=== PATIENT | male | born 1955 | race Caucasian/White ===

== ENCOUNTER 2022-11-16 16:47 | Emergency (ER) | payer MEDICARE, SELFPAY ==
[2022-11-16 17:11] VITALS: BP 126/78; PULSE 93; RESP 17; TEMP 36.8; O2SAT 98; BMI 25.8
--- NOTE | 2022-11-16 22:31 | ED_ITS ---
HPI - General Adult General: Chief complaint: General Medical Stated complaint: skin irritation, bugs? Time Seen by Provider: 11/16/22 17:16 Source: patient Mode of arrival: ambulatory Limitations: no limitations History of Present Illness: Patient presents to the emergency department today accompanied by family who is also here for similar symptoms of concerns for parasitic infestation. Patient reports seeing bugs crawling out of his skin for a month or so now. Family member with him reports she has been having them for several months and that they come out of her eyes, ears, skin, and in her stool. Patient states he is itchy. They have brought in examples of these bugs which are on pieces of duct tape, on paper towels and tissues wrapped up in a [employer] bag, etc. He states he puts the tape on his skin and when he pulls it off the bugs are attached. Review of Systems General: Reports: 10 or more systems reviewed and unremarkable except in HPI and below Physical Exam Const: COMMON NORMALS: no acute distress, average body habitus and patient oriented x3 HENMT: COMMON NORMALS: normocephalic, atraumatic, hearing grossly normal bilaterally, Normal external nose present and moist oral mucous membranes HEAD & SCALP: normocephalic and atraumatic NOSE: Normal external nose present Eye: COMMON NORMALS: Equal, round and reactive pupils present, EOMs intact bilaterally and conjunctivae normal CONJUNCTIVA: Yes conjunctivae normal PUPIL: Yes Equal, round and reactive pupils present Neck/C-Spine: COMMON NORMALS: no JVD Lymph: LYMPHATIC: no lymphadenopathy noted Resp: COMMON NORMALS: normal respiratory effort, No retractions and No use of accessory muscles Cardio: COMMON NORMALS: no JVD, regular rate and regular rhythm RATE: regular rate RHYTHM: regular rhythm GI: COMMON NORMALS: Normal to inspection, nondistended, normoactive bowel sounds present : COMMON NORMALS: Yes no CVA tenderness BLADDER/KIDNEY EXAM: Yes no CVA tenderness Back/Pelvis: COMMON NORMALS: no CVA tenderness and thoraco-lumbar ROM normal Extremity: COMMON NORMALS: normal to inspection, full ROM and capillary refill normal Neuro: COMMON NORMALS: patient oriented x3 Psych: COMMON NORMALS: mental status grossly normal, Normal thought process present, cooperative, normal affect and activity/motor behavior normal THOUGHT PROCESS: Normal thought process present Skin: NARRATIVE SKIN EXAM: Patient has several areas on his arms of small wounds and light erythema surrounding. There is a light yellow/green coating over these wounds. Course Vital Signs: Vital signs: Vital Signs Temperature 98.2 F 11/16/22 17:11 Pulse Rate 93 11/16/22 17:11 Respiratory Rate 17 11/16/22 17:11 Blood Pressure 126/78 11/16/22 17:11 Pulse Oximetry 98 11/16/22 17:11 Oxygen Delivery Me thod Room Air 11/16/22 17:11 MDM - General Adult Medical Decision Making Patient has no obvious signs of parasitic infestation on his exam and, items brought in with them do not appear to be parasitic in any way and appear more of pieces of skin which have been scratched off. 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 Patient will indicate he saw 1 and will try and to get out but then have missed it . He states he sees them and will point areas on his skin which show no signs of abnormality. Patient is treated with antibiotics for the open wounds and cellulitis. He was also given hydroxyzine to help with the itching. I have requested a follow-up appointment primary care to make sure the wounds are healing and to further evaluate the underlying cause of the perception of parasitosis. Differential Diagnosis DDx: Bedbugs, chiggers, scabies, delusions of parasitosis Discharge Plan Discharge Patient Disposition: Home Clinical Impression: Cellulitis Condition: Stable Prescriptions: New cephalexin 500 mg capsule 500 mg PO QID 7 Days Qty: 28 0RF hydroxyzine HCl 25 mg tablet 25 mg PO Q6H PRN (Reason: itching) 10 Days Qty: 40 0RF Discharge Orders: Discharge ED (Routine); Ordered 11/16/22 Ordered By: Holli Marley Discharge Diet: Usual diet Discharge Activity: Increase activity as tolerated Patient Instructions: Cellulitis Activity Restrictions/Additional Instructions: I am providing you medication to help with your skin symptoms and, have requested a follow-up appoint with a primary care doctor to discuss to continue monitoring success of healing of the spots on the skin. Coding Level of Care Code ED Airconditioning Plant Operator for Milli Mullen
--- NOTE | 2022-11-19 12:42 | DCPLANNER ---
application developer manager had message to speak with patient about getting established with a primary care physician. application developer manager called phone number [phone] - unable to speak with patient or leave a voicemail at this time.
== END 2022-11-16 17:53 | disposition home or self-care (01) ==
PROVIDERS: Emergency Provider Physician Assistant
DX: L03.90 Cellulitis, unspecified (principal)
CPT/HCPCS: 99283

== ENCOUNTER 2022-11-22 05:03 | Emergency (ER) | payer MEDICARE, SELFPAY ==
[2022-11-22 05:15] VITALS: BP 137/95; PULSE 97; RESP 17; O2SAT 98
--- NOTE | 2022-11-22 05:16 | W.ED.GENADLT ---
HPI - General Adult General: Chief complaint: Skin/Abscess/Foreign Body Stated complaint: Bug Bites Time Seen by Provider: 11/22/22 05:05 Source: patient Mode of arrival: ambulatory Limitations: no limitations History of Present Illness: 67-year-old male who is here with another individual same complaint states he had bug bites rash to his arms and hands over the last 2 weeks. He states that he believes he has bugs are invisible or could be botfly's he states that he sees them Cristian out of that time has been picking at his skin he is shining lights through his skin stating that he since he these bugs. Had some slight pruritus denies any fevers been on Keflex no improvement. Associated symptoms: Reports rash; Deny chest pain, dyspnea, nausea or vomiting Review of Systems Const: Denies: change in appetite ENMT: Denies: throat pain or dental pain Card: Denies: chest pain Resp: Denies: dyspnea GI: Denies: abdominal pain, nausea or vomiting Musc: Denies: neck pain or back pain Skin/Breast: Reports: rash Physical Exam Const: COMMON NORMALS: no acute distress and patient oriented x3 HENMT: COMMON NORMALS: normocephalic and atraumatic HEAD & SCALP: normocephalic and atraumatic Eye: COMMON NORMALS: conjunctivae normal CONJUNCTIVA: Yes conjunctivae normal Chest: COMMONS NORMALS: normal inspection of the chest Resp: COMMON NORMALS: normal respiratory effort Cardio: COMMON NORMALS: regular rate RATE: regular rate Extremity: COMMON NORMALS: full ROM Neuro: COMMON NORMALS: patient oriented x3 Psych: COMMON NORMALS: mental status grossly normal Skin: NARRATIVE SKIN EXAM: Insect bites or possible scabies noted to hands and arms patient is also been picking it could be picking wounds Course Vital Signs: Vital signs: Vital Signs Pulse Rate 97 11/22/22 05:15 Respiratory Rate 17 11/22/22 05:15 Blood Pressure 137/95 11/22/22 05:15 Pulse Oximetry 98 11/22/22 05:15 [facility] - General Adult Medical Decision Making Patient presents here with rash wounds to upper arms this could be scabies patient believes its botfly's or insects or invisible insects in the arms I did inform him we will put him on permethrin and get him follow-up with dermatology no signs of cellulitis patient here was very upset he is demanding skin biopsies I informed him we do not do a skin biopsy in the ER that he needs to follow-up with dermatology Medical Records I reviewed the patient's medical records. Lab Data I reviewed the patient's lab results. Discharge Plan Discharge Patient Disposition: Home Clinical Impression: Rash Condition: Stable Prescriptions: New Elimite 5 % cream 1 applic topical Q14D Qty: 60 0RF Rx Instructions: apply second treatment 14 days after first treatment if live lice remain No Action cephalexin 500 mg capsule 500 mg PO QID 7 Days Qty: 28 0RF hydroxyzine HCl 25 mg tablet 25 mg PO Q6H PRN (Reason: itching) 10 Days Qty: 40 0RF Discharge Orders: Discharge ED (Routine); Ordered 11/22/22 Ordered By: Danielle Miranda Referrals: Clari Sauceda DO [Physician] - 1-3 days Discharge Diet: Advance as tolerated Discharge Activity: Resume usual activity Patient Instructions: Acute Rash (ED) Coding Level of Care Code ED Environmental Protection Inspector for Milli Mullen
[2022-11-22 05:29] VITALS: BP 137/95; PULSE 97; RESP 17; O2SAT 98
--- NOTE | 2022-11-22 09:06 | DCPLANNER ---
Addendum entered by Gi Daugherty 11/23/22 12:54: Patient called case resource manager back, case manger explained to patient that the referral to dermatology would need to come from a primary care physician. patient stated that he has a primary care physician, but they are not local. technical manager chemical plant offered to help patient get established with a provider in the area, patient declined. Original Note: technical manager chemical plant had message to schedule a follow up appointment for patient with dermatology. technical manager chemical plant called patient to explain, that a referral to dermatology would have to be from patients primary care physician. technical manager chemical plant called phone number [phone], unable to speak with patient to explain this, case resource manager did leave a voicemail for patient to return heel caser phone call.
== END 2022-11-22 05:30 | disposition home or self-care (01) ==
PROVIDERS: Emergency Provider Emergency Medicine
DX: R21 Rash and other nonspecific skin eruption (principal)
CPT/HCPCS: 99283